=== PATIENT | male | born 1960 | race Caucasian/White ===

== ENCOUNTER 2018-04-16 11:08 | Observation (INO) | payer SELFPAY ==
--- NOTE | 2018-04-16 11:27 | ER Report ---
History and Physical Time Seen By MD: 11:27 Hx. of Stated Complaint: Pt. had heartburn last night, and it's not going away. Now has mid-seternal chest pressure. Also has tingling sensation in his fingers and toes. 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 Patient does complain of bilateral lower extremity soreness in his calves. Denies taking any medications aside from antihypertensive with a history of hypertension. Patient denies prior history of cardiac disease with a reportedly negative cardiac catheterization in 2007 or . Patient is afebrile, hemodynamically stable at time of evaluation. Patient reports having a cough which is worse than his regular smoking cough. REVIEW OF SYSTEMS: Constitutional: No fever, no chills. Eyes: No discharge. ENT: No sore throat. Cardiovascular: + mid sternal chest pain/ pressure, no palpitations. Respiratory: + cough, + shortness of breath. Gastrointestinal: + mid epigastric burning abdominal pain, + nausea/ vomiting and diarrhea Genitourinary: No hematuria. Musculoskeletal: No back pain. Skin: No rashes. Neurological: No headache, + near syncopal episodes. Allergies: Coded Allergies: No Known Drug Allergies (Unverified , 04/16/18) Constitutional Vital Sign - Last 24 Hours 04/16/18 04/16/18 04/16/18 04/16/18 11:13 11:15 11:18 11:23 Temp 98.1 Pulse 71 69 65 Resp 20 14 12 B/P (MAP) 134/81 134/81 (98) Pulse Ox 96 93 94 O2 Delivery Room Air 04/16/18 04/16/18 04/16/18 04/16/18 11:28 11:30 11:33 11:38 Pulse 71 59 59 Resp 14 20 11 B/P (MAP) 137/77 (97) Pulse Ox 94 93 94 04/16/18 04/16/18 04/16/1804/16/18 11:43 11:46 11:48 12:00 Pulse 68 74 Resp 12 18 B/P (MAP) 128/83 (98) 131/78 (95) Pulse Ox 94 91 04/16/18 04/16/18 04/16/18 04/16/18 12:03 12:08 12:08 12:13 Pulse 60 55 57 Resp 16 16 Pulse Ox 92 94 94 O2 Flow Rate 2.0 04/16/18 04/16/18 04/16/18 04/16/18 12:18 12:23 12:28 12:30 Pulse 54 51 49 Resp 17 15 14 B/P (MAP) 121/74 (90) Pulse Ox 92 92 92 04/16/18 04/16/18 04/16/18 04/16/18 12:33 12:38 12:43 12:48 Pulse 49 52 55 59 Resp 14 15 21 12 Pulse Ox 92 92 93 93 04/16/18 04/16/18 04/16/18 04/16/18 12:53 12:58 13:03 13:08 Pulse 53 57 65 60 Resp 0 25 16 9 Pulse Ox 94 94 92 04/16/18 04/16/18 13:13 13:28 Pulse 52 62 Resp 0 13 Pulse Ox 94 92 Physical Exam General Appearance: The patient is alert, has no immediate need for airway protection and no signs of toxicity. Moderate distress secondary to pain Eyes: Scleral icterus ENT, Mouth: Mucous membranes are moist. Respiratory: There are no retractions, lungs are clear to auscultation Cardiovascular: Regular rate and rhythm. Gastrointestinal: Abdomen is soft and + mid epigastric tenderness, no masses, bowel sounds normal. Neurological: No focal deficits Skin: Warm and dry, no rashes, mild jaundice Musculoskeletal: Neck is supple non tender. Extremities are nontender, nonswollen and have full range of motion. DIFFERENTIAL DIAGNOSIS: After history and physical exam differential diagnosis was considered for chest pain including but not limited to myocardial ischemia, pericarditis pulmonary embolus, chest wall pain, pleural inflammation and pulmonary infectious causes., abdominal pain including but not limited to a ppendicitis, cholecystitis, gastritis Medical Decision Making Data Points Result Diagram: 04/16/18 1120 04/16/18 1120 Laboratory Hematology Test 04/16/18 11:20 04/16/18 13:05 04/16/18 15:28 Red Blood Count 4.71 M/uL (4.00-5.60) Mean Corpuscular Volume 101.1 fL (80.0-96.0) Mean Corpuscular Hemoglobin 35.3 pg (26.0-33.0) Mean Corpuscular Hemoglobin Concent 35.0 g/dL (32.0-36.0) Red Cell Distribution Width 14.1 % (11.5-14.5) Mean Platelet Volume 9.4 fL (7.2-11.1) Neutrophils (%) (Auto) 68.7 % (39.4-72.5) Lymphocytes (%) (Auto) 19.1 % (17.6-49.6) Monocytes (%) (Auto) 8.4 % (4.1-12.4) Eosinophils (%) (Auto) 3.0 % (0.4-6.7) Basophils (%) (Auto) 0.8 % (0.3-1.4) Nucleated RBC Relative Count (auto) 0.1 /100WBC Neutrophils # (Auto) 2.6 K/uL (2.0-7.4) Lymphocytes # (Auto) 0.7 K/uL (1.3-3.6) Monocytes # (Auto) 0.3 K/uL (0.3-1.0) Eosinophils # (Auto) 0.1 K/uL (0.0-0.5) Basophils # (Auto) 0.0 K/uL (0.0-0.1) Nucleated RBC Absolute Count (auto) 0.00 K/uL Peripheral Blood Smear Yes Y/N Prothrombin Time 15.9 seconds (12.0-14.4) Prothromb Time International Ratio 1.26 Activated Partial Thromboplast Time 32 seconds (23-35) D-Dimer Quantitative (PE/DVT) 0.49 ug/ml (0-0.50) Sodium Level 139 mmol/L (137-145) Potassium Level 3.8 mmol/L (3.5-5.0) Chloride Level 111 mmol/L (98-107) Carbon Dioxide Level 20 mmol/L (22-30) Blood Urea Nitrogen 9 mg/dl (9-21) Creatinine 0.70 mg/dl (0.66-1.25) Glomerular Filtration Rate Calc > 60.0 Random Glucose 96 mg/dl (75-110) Calcium Level 7.9 mg/dl (8.4-10.2) Total Bilirubin 3.3 mg/dl (0.2-1.3) Aspartate Amino Transf (AST/SGOT) 98 U/L (0-35) Alanine Aminotransferase (ALT/SGPT) 102 U/L (0-56) Alkaline Phosphatase 99 U/L (0-126) Troponin I < 0.012 ng/ml B-Type Natriuretic Peptide 110 pg/ml (0-100) Total Protein 6.9 g/dl (6.3-8.2) Albumin 3.1 g/dl (3.5-5.0) Lipase 352 U/L (23-300) Urine Color Ashley Urine Clarity Clear Urine pH 5.0 pH (4.8-9.5) Urine Specific [place] 1.020 Urine Protein Negative mg/dL (NEGATIVE) Urine Glucose (UA) Negative mg/dL (NEGATIVE) Urine Ketones Negative mg/dL (NEGATIVE) Urine Blood Negative (NEGATIVE) Urine Nitrite Negative (NEGATIVE) Urine Bilirubin Negative (NEGATIVE) Urine Urobilinogen 4.0 mg/dL (0.2-1.9) Urine Leukocyte Esterase Negative (NEGATIVE) Urine RBC 1 /HPF (0-2/HPF) Urine WBC 2 /HPF (0-5/HPF) Urine Squamous Epithelial Cells Many /LPF (</=FEW) Urine Bacteria Moderate /HPF (NONE-FEW) Urine Mucus Few /HPF (NONE-FEW) Chemistry Test 04/16/18 11:20 04/16/18 13:05 04/16/18 15:28 White Blood Count 3.8 k/uL (4.5-11.0) Red Blood Count 4.71 M/uL (4.00-5.60) Hemoglobin 16.6 g/dL (14.0-18.0) Hematocrit 47.6 % (42.0-52.0) Mean Corpuscular Volume 101.1 fL (80.0-96.0) Mean Corpuscular Hemoglobin 35.3 pg (26.0-33.0) Mean Corpuscular Hemoglobin Concent 35.0 g/dL (32.0-36.0) Red Cell Distribution Width 14.1 % (11.5-14.5) Platelet Count 42 K/uL (150-450) Mean Platelet Volume 9.4 fL (7.2-11.1) Neutrophils (%) (Auto) 68.7 % (39.4-72.5) Lymphocytes (%) (Auto) 19.1 % (17.6-49.6) Monocytes (%) (Auto) 8.4 % (4.1-12.4) Eosinophils (%) (Auto) 3.0 % (0.4-6.7) Basophils (%) (Auto) 0.8 % (0.3-1.4) Nucleated RBC Relative Count (auto) 0.1 /100WBC Neutrophils # (Auto) 2.6 K/uL (2.0-7.4) Lymphocytes # (Auto) 0.7 K/uL (1.3-3.6) Monocytes # (Auto) 0.3 K/uL (0.3-1.0) Eosinophils # (Auto) 0.1 K/uL (0.0-0.5) Basophils # (Auto) 0.0 K/uL (0.0-0.1) Nucleated RBC Absolute Count (auto) 0.00 K/uL Peripheral Blood Smear Yes Y/N Prothrombin Time 15.9 seconds (12.0-14.4) Prothromb Time International Ratio 1.26 Activated Partial Thromboplast Time 32 seconds (23-35) D-Dimer Quantitative (PE/DVT) 0.49 ug/ml (0-0.50) Glomerular Filtration Rate Calc > 60.0 Calcium Level 7.9 mg/dl (8.4-10.2) Total Bilirubin 3.3 mg/dl (0.2-1.3) Aspartate Amino Transf (AST/SGOT) 98 U/L (0-35) Alanine Aminotransferase (ALT/SGPT) 102 U/L (0-56) Alkaline Phosphatase 99 U/L (0-126) Troponin I < 0.012 ng/ml B-Type Natriuretic Peptide 110 pg/ml (0-100) Total Protein 6.9 g/dl (6.3-8.2) Albumin 3.1 g/dl (3.5-5.0) Lipase 352 U/L (23-300) Urine Color Ashley Urine Clarity Clear Urine pH 5.0 pH (4.8-9.5) Urine Specific [place] 1.020 Urine Protein Negative mg/dL (NEGATIVE) Urine Glucose (UA) Negative mg/dL (NEGATIVE) Urine Ketones Negative mg/dL (NEGATIVE) Urine Blood Negative (NEGATIVE) Urine Nitrite Negative (NEGATIVE) Urine Bilirubin Negative (NEGATIVE) Urine Urobilinogen 4.0 mg/dL (0.2-1.9) Urine Leukocyte Esterase Negative (NEGATIVE) Urine RBC 1 /HPF (0-2/HPF) Urine WBC 2 /HPF (0-5/HPF) Urine Squamous Epithelial Cells Many /LPF (</=FEW) Urine Bacteria Moderate /HPF (NONE-FEW) Urine Mucus Few /HPF (NONE-FEW) Coagulation Test 04/16/18 11:20 Prothrombin Time 15.9 seconds Prothromb Time International Ratio 1.26 Activated Partial Thromboplast Time 32 seconds D-Dimer Quantitative (PE/DVT) 0.49 ug/ml Urinalysis Test 04/16/18 13:05 Urine Color Ashley Urine Clarity Clear Urine pH 5.0 pH (4.8-9.5) Urine Specific [place] 1.020 Urine Protein Negative mg/dL (NEGATIVE) Urine Glucose (UA) Negative mg/dL (NEGATIVE) Urine Ketones Negative mg/dL (NEGATIVE) Urine Blood Negative (NEGATIVE) Urine Nitrite Negative (NEGATIVE) Urine Bilirubin Negative (NEGATIVE) Urine Urobilinogen 4.0 mg/dL (0.2-1.9) Urine Leukocyte Esterase Negative (NEGATIVE) Urine RBC 1 /HPF (0-2/HPF) Urine WBC 2 /HPF (0-5/HPF) Urine Squamous Epithelial Cells Many /LPF (</=FEW) Urine Bacteria Moderate /HPF (NONE-FEW) Urine Mucus Few /HPF (NONE-FEW) EKG/Imaging EKG Interpretation 12 lead EKG: Normal sinus rhythm, rate 61, QTc 465, no ischemic changes or arrhythmias Rhythm: normal sinus rhythm [place]: normal QRS: normal ST segments: normal Imaging Location: [facility] Patient: Alon Galarza : 1960 Visit/Account:[id number] Date of Sev: 04/16/2018 Technique: CHEST PA AND LAT HISTORY: Chest Pain Comparison studies: None FINDINGS: No acute airspace consolidation. No pleural effusion. Diffusely increased interstitial lung markings are noted. The cardiomediastinal silhouette is unremarkable. IMPRESSION: 1. No acute cardiopulmonary process. 2. Chronic lung findings as described above. ED Course/Re-evaluation ED Course Patient is a 58-year-old male here with complaints of chest pain, chest pressure, burning midepigastric abdominal pain, nausea, vomiting, orange urine which has been ongoing for the past week or so. Patient reports that symptoms have been worsening since Monday prompting evaluation. 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 Patient does have mild j aundice on examination as well as midepigastric and right upper quadrant abdominal pain. Patient was also noted to have mild scleral icterus, mild jaundice on physical exam. Patient was found to have elevated total bilirubin, elevated LFTs, elevated lipase, decreased platelet count consistent with s ignificant alcohol use or liver disease with worsening synthetic function. Troponin and d-dimer were negative. CT imaging showed a cirrhotic nodular liver, scattered varices, and irregular mass in the lower lobe of the liver concerning for malignancy. I discussed the options of admission here or transfer for further workup and the patient opted for optimization and admission here so that he could get home for further workup later on. I discussed the patient with Dr. Roberto Clark who accepted the patient to his service. Decision to Disposition Date: Apr 16, 2018 Decision to Disposition Time: 15:48 Depart Departure Latest Vital Signs Vital Signs Date Time Temp Pulse Resp B/P (MAP) Pulse Ox O2 Delivery O2 Flow Rate FiO2 04/16/18 13:28 62 13 92 04/16/18 12:30 121/74 (90) 04/16/18 12:08 2.0 04/16/18 11:13 98.1 Room Air Impression: Primary Impression: Pancreatitis Additional Impressions: Cirrhosis Nausea & vomiting Condition: Condition Unchanged Disposition: Admitted from ER Problem Qualifiers GAMA APPLE DO Apr 16, 2018 11:27
[2018-04-16] MEDS ORDERED: NS(*) 0.9% 1000 ML BAG 1,000 ML IV ONE ×2 (11:32→13:00)
[2018-04-16] MEDS ORDERED: ASPIRIN 81 MG CHEW PO ONE (11:35)
[2018-04-16] MEDS ORDERED: GI COCKTAIL 60 ML BTL PO PRN (11:35)
[2018-04-16] MEDS ORDERED: LIDOCAINE 2% VISC SLN 15ML UDC PO ONE (11:40)
[2018-04-16] MEDS ORDERED: ATRO/SCOPOL/HYOSCY/PB 5 ML ELX PO ONE (11:40)
[2018-04-16] MEDS ORDERED: MAG HYD/AL HYD/SIMETH 30ML UDC PO ONE (11:40)
[2018-04-16] MEDS: NITROGLYCERIN 0.4 MG SUBL SL SCH ×2 (11:41→15:44)
[2018-04-16 12:03] LABS: PLATELET COUNT, AUTOMATED 42 K/uL (150-450)
--- NOTE | 2018-04-16 12:17 | RADIOLOGY IMAGING REPORT ---
FACILITY: [facility] PATIENT NAME: Alon Galarza : 1960 MR: [id number] V: [id number] EXAM DATE: ORDERING PHYSICIAN: GAMA APPLE TECHNOLOGIST: Location: [facility] Patient: Alon Galarza : 1960 Visit/Account:[id number] Date of Sevice: 04/16/2018 Technique: CHEST PA AND LAT HISTORY: Chest Pain Comparison studies: None FINDINGS: No acute airspace consolidation. No pleural effusion. Diffusely increased interstitial rahel ng markings are noted. The cardiomediastinal silhouette is unremarkable. IMPRESSION: 1. No acute cardiopulmonary process. 2. Chronic lung findings as described above. Report Dictated By: Vince Amaya DO at 04/16/2018 12:11 PM Report E-Signed By: Vince Amaya DO at 04/16/2018 12:12 PM [id number]
--- NOTE | 2018-04-16 12:18 | EKG ---
FACILITY: [facility] PATIENT NAME: KELTON BUNN : [id number] MR: [id number] V: [id number] EXAM DATE: ORDERING PHYSICIAN: GAMA APPLE TECHNOLOGIST: NHAN Test Reason : CHEST PAIN Blood Pressure : / mmHG Vent. Rate : 061 BPM Atrial Rate : 061 BPM P-R Int : 178 ms QRS Dur : 088 ms QT Int : 462 ms P-R-T Axes : 055 021 039 degrees QTc Int : 465 ms Sinus rhythm Possible left atrial enlargement No acute appearing findings No previous ECGs available Confirmed by MT ROMERO ([id number]) on 04/16/2018 1:45:03 PM Referred By: Confirmed By:MT ROMERO
[2018-04-16 12:21] LABS: INR 1.26
[2018-04-16] MEDS ORDERED: IOPAMIDOL 76% 75 ML INFUS BTL 75 ML ONE (13:03)
--- NOTE | 2018-04-16 14:29 | RADIOLOGY IMAGING REPORT ---
FACILITY: [facility] PATIENT NAME: Alon Galarza : 1960 MR: [id number] V: [id number] EXAM DATE: ORDERING PHYSICIAN: GAMA APPLE TECHNOLOGIST: Location: [facility] Patient: Alon Galarza : 1960 Visit/Account:[id number] Date of Sevice: 04/16/2018 ABDOMEN/PELVIS WITH CONTRAST HISTORY: pancreatitis, abd pain TECHNIQUE: Following administration of IV contrast contiguous axial images acquired through the abdom en/pelvis. Coronal and sagittal reformatting also performed.Dose Lowering Technique One of the following dose optimization techniques was utilized in the performance of this exam: Autom ated exposure control; adjustment of the mA and/or kV according to the patient's size; or use of an i terative reconstruction technique. Specific details can be referenced in the facility's radiology C T exam operational policy. CONTRAST: 75 mL [id number] COMPARISON: None. FINDINGS: Visualized lung bases: There are reticular changes seen in the periphery of the lower lung [place] wh ich may be chronic Hepatobiliary: There is a nodular contour throughout the liver with hypertrophy of the left lobe. Fi ndings are consistent with a cirrhotic appearance. In the anteromedial inferior right lobe there is a 2.3 x 1.3 cm irregular hypoattenuating mass. Several other tiny subcentimeter hypodensities within the liver which are too small to characterize. There are postsurgical changes from a cholecystectom y Spleen: Spleen is enlarged measuring 18.7 cm in length Adrenals: Negative. Pancreas: There are infiltrative changes seen in the peripancreatic fat consistent with the clinical history of pancreatitis. No evidence of a pseudocyst. The pancreatic duct does not appear dilated Kidneys ureters or bladder: There is a 4.5 cm anterior left renal cyst Genitalia: Negative. GI: Negative. Vessels/spaces/nodes: There are gastric and paraesophageal varices in addition to numerous additiona l collateral vessels within the mesentery .. There are mild vascular calcifications present through out the abdomen and pelvis. There are multiple mildly prominent periportal lymph nodes. A inventory representative lymph node measures 1.6 x 1.4 cm. There are small shotty retroperitoneal lymph nodes as well Bones/soft tissues: There is a small umbilical hernia containing fat.. There is a right inguinal he rnia containing fat. There is a moderate compression fracture of L4 Additional findings: None pertinent. IMPRESSION: There is a cirrhotic appearance to the liver with numerous gastric paraesophageal and mesenteric vari ramon. There is a 2.3 x 1.3 cm irregular hypoattenuating mass inferior aspect right lobe the liver. P rimary hepatocellular carcinoma cannot be excluded although the differential diagnosis would include other solid hepatic lesions both benign and malignant. There are multiple mildly prominent periporta l lymph nodes in addition to shotty retroperitoneal lymph nodes Splenomegaly There are infiltrative changes in the peripancreatic fat consistent with clinical history of pancreat itis. There is no evidence of a pseudocyst or pancreatic ductal dilatation. Moderate compression fracture of L4 Small umbilical hernia containing fat and right inguinal hernia containing fat Report Dictated By: Dione Chavez MD at 04/16/2018 2:10 PM Report E-Signed By: Dione Chavez MD at 04/16/2018 2:26 PM [id number]
[2018-04-16] MEDS ORDERED: traMADol 50 MG TAB PO ONE (14:30)
[2018-04-16] MEDS ORDERED: ONDANSETRON 4 MG/2 ML VIAL IVP ONE (14:30)
[2018-04-16] MEDS ORDERED: oxyCODONE HCL 5 MG CAP PO ONE (14:30)
[2018-04-16] MEDS ORDERED: fentaNYL CITR 100 MCG/2 ML AMP IVP ONE (14:40)
[2018-04-16 16:21] VITALS: BP 151/80
[2018-04-16] MEDS ORDERED: LISI20TA29 PO (16:29)
[2018-04-16] MEDS ORDERED: NS(*) 0.9% 1000 ML BAG 1,000 ML IV PRN (17:24)
[2018-04-16] MEDS ORDERED: PROMETHAZINE 25 MG/ML 1 ML AMP IVP PRN (17:25)
[2018-04-16] MEDS ORDERED: HYDROmorphone PCA 6 MG/30 ML IV PRN (17:25)
[2018-04-16] MEDS ORDERED: INFLUENZA VIRUS VAC 0.5ML SYR IM ONLY ONE (17:25)
--- NOTE | 2018-04-16 17:39 | History & Physical ---
History of Present Illness Chief Complaint Abdominal pain, nausea History of Present Illness 58yo male with PMHx significant for HTN and "maybe hepatitis C". He reports frequent epigastric pain, waterbrash, pyrosis. His symptoms increased signifi cantly yesterday with worsening epigastric pain, nausea with emesis, some diarrhea. No obvious fevers or chills. No urinary symptoms. He does drink alcohol intermittently. 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 He was evaluated in the ER and found to have mild elevation of his lipase, evidence of fairly advanced cirrhosis of the liver, as well as liver mass. He was recommended for admission. History Problems: (1) HTN (hypertension) (2) History of cholecystectomy (3) Hepatitis C Comment: Possible (4) GERD (gastroesophageal reflux disease) Home Meds Reported Medications Lisinopril (LISINOPRIL) 20 Mg Tablet, 20 MG PO QDAY, TAB 04/16/18 Allergies: Coded Allergies: No Known Drug Allergies (Unverified , 04/16/18) Patient History: Lung cancer FATHER Myocardial infarction MOTHER Other Social/Family Hx Lives in [place]. Works as driver manager. Hx Smoking: Yes Smoking Status: Current: Every Day Smoker Exposure to Second Hand Smoke?: No Caffeine Intake: Coffee, Tea, Soda Caffeine/Cups Per Day: 4 Hx Alcohol Use: Yes (varies ) Alcohol Used: Beer, Liquor Review of Systems Constitutional: No Fever, No Chills, No Night Sweats Neurological: No Syncope, No Confusion, No Weakness Eyes: No Vision Change ENT: No Hearing Loss Cardiovascular: No Chest Pain, No Palpitations Respiratory: No Shortness of Breath, No Cough Gastrointestinal: Nausea, Vomiting, Diarrhea; No Hematemesis, No Hematochezia, No Melena; Abdominal Pain Genitourinary: No Dysuria, No Hematuria, No Urinary Incontinence Musculoskeletal: Pain Exam Vital Signs Vital Signs Date Time Temp Pulse Resp B/P (MAP) Pulse Ox O2 Delivery O2 Flow Rate FiO2 04/16/18 16:35 92 04/16/18 16:35 Room Air 04/16/18 16:21 97.5 67 18 151/80 (103) 04/16/18 12:08 2.0 General Appearance: Alert, Awake Neuro: No Gross deficits Eyes: PERRLA (mild scleral icterus) ENT: Oropharynx Clear Neck: No Masses Cardiovascular: Regular Rate and Rhythm Respiratory: Clear to Auscultation Chest: No Tenderness GI: Other (slightly distended/soft/BS present/tenderness reported diffusely with palpation) : No CVA Tenderness Lymph: No Adenopathy Extremities: Warm, Perfused Integumentary: Other (hard nodular dark colored lesion over right medial malleolar area) Psych: Alert & Oriented X3 Medical Decision Making Data Points Result Diagram: 04/16/18 1120 04/16/18 1120 Item Value Date Time Urine Mucus Few /HPF 04/16/18 1305 Urine Bacteria Moderate /HPF H 04/16/18 1305 Urine Squamous Epithelial Cells Many /LPF H 04/16/18 1305 Urine WBC 2 /HPF 04/16/18 1305 Urine RBC 1 /HPF 04/16/18 1305 Urine Leukocyte Esterase Negative 04/16/18 1305 Urine Urobilinogen 4.0 mg/dL H 04/16/18 1305 Urine Bilirubin Negative 04/16/18 1305 Urine Nitrite Negative 04/16/18 1305 Urine Blood Negative 04/16/18 1305 Urine Ketones Negative mg/dL 04/16/18 1305 Urine Glucose (UA) Negative mg/dL 04/16/18 1305 Urine Protein Negative mg/dL 04/16/18 1305 Urine Specific [place] 1.020 04/16/18 1305 Urine pH 5.0 pH 04/16/18 1305 Urine Clarity Clear 04/16/18 1305 Urine Color Ashley 04/16/18 1305 Lipase 352 U/L H 04/16/18 1120 Ammonia 38 UMOL/L H 04/16/18 1528 B-Type Natriuretic Peptide 110 pg/ml H 04/16/18 1120 Albumin 3.1 g/dl L 04/16/18 1120 Total Protein 6.9 g/dl 04/16/18 1120 Troponin I < 0.012 ng/ml 04/16/18 1120 Alkaline Phosphatase 99 U/L 04/16/18 1120 Alanine Aminotransferase (ALT/SGPT) 102 U/L H 04/16/18 1120 Aspartate Amino Transf (AST/SGOT) 98 U/L H 04/16/18 1120 Total Bilirubin 3.3 mg/dl H 04/16/18 1120 Calcium Level 7.9 mg/dl L 04/16/18 1120 Activated Partial Thromboplast Time 32 seconds 04/16/18 112 Prothromb Time International Ratio 1.26 04/16/18 112 Prothrombin Time 15.9 seconds H 04/16/18 112 D-Dimer Quantitative (PE/DVT) 0.49 ug/ml 04/16/18 1120 EKG / Imaging EKG Interpretation PATIENT NAME: ALON BUNN : [id number] MR: [id number] V: [id number] EXAM DATE: ORDERING PHYSICIAN: GAMA APPLE TECHNOLOGIST: NHAN Test Reason : CHEST PAIN Blood Pressure : / mmHG Vent. Rate : 061 BPM Atrial Rate : 061 BPM P-R Int : 178 ms QRS Dur : 088 ms QT Int : 462 ms P-R-T Axes : 055 021 039 degrees QTc Int : 465 ms Sinus rhythm Possible left atrial enlargement No acute appearing findings No previous ECGs available Confirmed by MT ROMERO ([id number]) on 04/16/2018 1:45:03 PM Referred By: Confirmed By:MT ROMERO Imaging PATIENT NAME: Alon Bunn : 1960 MR: [id number] V: [id number] EXAM DATE: [id number] ORDERING PHYSICIAN: GAMA APPLE TECHNOLOGIST: Location: [facility] - [place] Patient: Alon Bunn : 1960 Visit/Account:[id number] Date of Sevice: 04/16/2018 ABDOMEN/PELVIS WITH CONTRAST HISTORY: pancreatitis, abd pain TECHNIQUE: Following administration of IV contrast contiguous axial images acquired through the abdomen/pelvis. Coronal and sagittal reformatting also performed.Dose Lowering Technique One of the following dose optimization techniques was utilized in the performance of this exam: Automated exposure control; adjustment of the mA and/or kV according to the patient's size; or use of an iterative reconstruction technique. Specific details can be referenced in the facility's radiology CT exam operational policy. CONTRAST: 75 mL Isovue-370 COMPARISON: None. FINDINGS: Visualized lung bases: There are reticular changes seen in the periphery of the lower lung carrillo which may be chronic Hepatobiliary: There is a nodular contour throughout the liver with hypertrophy of the left lobe. Findings are consistent with a cirrhotic appearance. In the anteromedial inferior right lobe there is a 2.3 x 1.3 cm irregular hypoattenuating mass. Several other tiny subcentimeter hypodensities within the liver which are too small to characterize. There are postsurgical changes from a cholecystectomy Spleen: Spleen is enlarged measuring 18.7 cm in length Adrenals: Negative. Pancreas: There are infiltrative changes seen in the peripancreatic fat consistent with the clinical history of pancreatitis. No evidence of a pseudocyst. The pancreatic duct does not appear dilated Kidneys ureters or bladder: There is a 4.5 cm anterior left renal cyst Genitalia: Negative. GI: Negative. Vessels/spaces/nodes: There are gastric and paraesophageal varices in addition to numerous additional collateral vessels within the mesentery .. There are mild vascular calcifications present throughout the abdomen and pelvis. There are multiple mildly prominent periportal lymph nodes. A enrollment representative lymph node measures 1.6 x 1.4 cm. There are small shotty retroperitoneal lymph nodes as well Bones/soft tissues: There is a small umbilical hernia containing fat.. There is a right inguinal hernia containing fat. There is a moderate compression fracture of L4 Additional findings: None pertinent. IMPRESSION: There is a cirrhotic appearance to the liver with numerous gastric paraesophageal and mesenteric varices. There is a 2.3 x 1.3 cm irregular hypoattenuating mass inferior aspect right lobe the liver. Primary hepatocellular carcinoma cannot be excluded although the differential diagnosis would include other solid hepatic lesions both benign and malignant. There are multiple mildly prominent periportal lymph nodes in addition to shotty retroperitoneal lymph nodes Splenomegaly There are infiltrative changes in the peripancreatic fat consistent with clinical history of pancreatitis. There is no evidence of a pseudocyst or pancreatic ductal dilatation. Moderate compression fracture of L4 Small umbilical hernia containing fat and right inguinal hernia containing fat Report Dictated By: Dione Chavez MD at 04/16/2018 2:10 PM Report E-Signed By: Dione Chavez MD at 04/16/2018 2:26 PM WSN:[facility] PATIENT NAME: Alon Bunn : 1960 MR: [id number] V: [id number] EXAM DATE: ORDERING PHYSICIAN: GAMA APPLE TECHNOLOGIST: Location: [facility] - [place] Patient: Alon Bunn : 1960 Visit/Account:[id number] Date of Sevalexsandra: 04/16/2018 Technique: CHEST PA AND LAT HISTORY: Chest Pain Comparison studies: None FINDINGS: No acute airspace consolidation. No pleural effusion. Diffusely increased interstitial lung markings are noted. The cardiomediastinal silhouette is unremarkable. IMPRESSION: 1. No acute cardiopulmonary process. 2. Chronic lung findings as described above. Report Dictated By: Vince Amaya DO at 04/16/2018 12:11 PM Report E-Signed By: Vince Amaya DO at 04/16/2018 12:12 PM WSN:[facility] Assessment and Plan Problems: (1) Abdominal pain Status: Acute Assessment & Plan: This may be multifactorial including possible acute pancreatitis based on lab and CT scan findings. He also appears to have fairly advanced liver disease - probably chronic hepatitis C and alcohol related. Additionally, he has a suspicious liver mass. Will admit for IV fluids, analgesics, antiemetics. Will place on clear liquids. Watch symptoms and labs closely. He initially has said he would like to do any further evaluation (ie biopsies, etc) back home in [place]. (2) Nausea & vomiting Status: Acute Assessment & Plan: Most likely related to acute pancreatitis. Will control with antiemetics as needed. (3) HTN (hypertension) Assessment & Plan: Hold his lisinopril for now. Monitor BPs. Venous Thromboembolism Antithrombotics Is Pt On Any Antithrombotics?: Yes Exam Sepsis Risk: No Definite Risk MT ROMERO MD Apr 16, 2018 17:39
[2018-04-16 20:36] VITALS: BP 137/84
[2018-04-16] MEDS: PANTOPRAZOLE SOD 40 MG IV VIAL IVP SCH (21:37)
[2018-04-17 02:23] VITALS: BP 142/81
[2018-04-17 06:49] LABS: PLATELET COUNT, AUTOMATED 37 K/uL (150-450)
[2018-04-17 08:14] VITALS: BP 132/77
[2018-04-17] MEDS: PANTOPRAZOLE SOD 40 MG IV VIAL IVP SCH (08:21)
[2018-04-17] MEDS ORDERED: ENOXAPARIN 40 MG/0.4ML SYR SC SCH (09:00)
[2018-04-17] MEDS ORDERED: traMADol 50 MG TAB PO PRN (10:05)
[2018-04-17 11:55] VITALS: BP 123/69
--- NOTE | 2018-04-17 12:02 | Hospitalist Progress Note ---
Subjective Progress Notes Subjective He is tolerating clears and wants to advance his diet. He is still having his chronic epigastric pain. Nausea has resolved. Physical Exam Vital Signs Date Time Temp Pulse Resp B/P (MAP) Pulse Ox O2 Delivery O2 Flow Rate FiO2 04/17/18 11:45 20 92 04/17/18 08:39 Room Air 04/17/18 08:35 4.0 04/17/18 08:14 97.9 64 132/77 (95) Intake and Output 04/17/18 07:00 Intake Total 2700 ml Balance 2700 ml Intake Oral 700 ml IV Total 2000 ml # Voids 1 General Appearance: Alert, Awake, No Acute Distress Neuro: No Gross deficits, Other (Orientated to date, location, events that led to admission) GI: Soft and Non-Tender Result Diagram: 04/17/1860904/17/18609 Assessment and Plan Problems: (1) Abdominal pain Status: Acute Assessment & Plan: This may be multifactorial including possible acute pancreatitis based on lab and CT scan findings. He also appears to have fairly advanced liver disease - probably chronic hepatitis C and alcohol related. Additionally, he has a suspicious liver mass. Lipase is normal today and he is wanting to eat. Will advance to a low fat diet. He has said he would like to do any further evaluation (ie biopsies, etc) back home in [place]. (2) Cirrhosis Status: Acute Assessment & Plan: See above. INR, T bilirubin, and ammonia a bit elevated. His mentation is clear. Will follow labs. (3) Nausea & vomiting Status: Resolved Assessment & Plan: Most likely related to acute pancreatitis. Improved. (4) HTN (hypertension) Assessment & Plan: Hold his lisinopril for now. Monitor BPs. Exam Sepsis Risk: No Definite Risk PÉREZ LANE MD Apr 17, 2018 12:01
[2018-04-17] MEDS ORDERED: hydrOXYzine 25 MG TAB PO ONE (13:30)
[2018-04-17] MEDS: oxyCODONE HCL 5 MG CAP PO PRN ×2 (14:21→20:30)
--- NOTE | 2018-04-17 15:07 | Medical Nutrition Therapy ---
Nutrition Anthropometrics Weight (Pounds): 280 Weight (Calculated Kilograms): 127.006 Amarjit Nutrition Score: Adequate Amarjit Nutrition Risk Score: 22 Dietary Referral Nutrition Risk Factors: Nutrition Risk Comment: Nutritional Diagnosis Nutritional Risk Acuity 2: Liver Cirrhosis Past Medical History: cirrhosis, Nutritional Acuity: 2-Moderate Energy Requirement: 2540 (20gm/kg) Protein Requirement: 127 (1gm/kg) Fluid Requirement: 2540 (20ml/kg) Diet Type: Low Fat Nutrition Intervention: Cont diet as ordered, Encourage intake Nutrition Monitoring & Eval Nutrition Goals: Eat 75-100% Meal RD Patient Assessment Time: [address] Assessment Type: RD Assessment Patient Nutrition Acuity: 2-Moderate Follow Up Date: Apr 21, 2018 Nutritional Comment: 04/17 Pt admitted for cirrhosis. Diet just advanced to low fat. No intake reported at this time. Alb 2.8 Pt reporting N/V. Will cont to monitor. CHANO SKAGGS Apr 17, 2018 15:07
[2018-04-17 15:10] VITALS: BP 139/78
[2018-04-17] MEDS ORDERED: diphenhydrAMINE 25 MG CAP PO PRN (17:35)
[2018-04-17 18:08] VITALS: BP 138/77
[2018-04-17 22:11] VITALS: BP 127/71
[2018-04-18] VITALS (8 sets, daily range): BP systolic 118–152; BP diastolic 66–82
[2018-04-18 05:55] LABS: INR 1.34
[2018-04-18 07:11] LABS: PLATELET COUNT, AUTOMATED 31 K/uL (150-450)
[2018-04-18] MEDS: PANTOPRAZOLE SOD 40 MG TABEC PO SCH (09:14)
[2018-04-18] MEDS: LACTULOSE 10 GM/15 ML UDCUP PO SCH (09:15)
[2018-04-18] MEDS: SUCRALFATE 1 GM TAB PO SCH ×3 (10:51→21:03)
--- NOTE | 2018-04-18 11:50 | Hospitalist Progress Note ---
Subjective Progress Notes Subjective This patient was admitted for abdominal pain. He had no acute events overnight. Patient Complains of: Cardiovascular: No: Chest Pain Respiratory: No: Shortness of Breath Physical Exam Vital Signs Date Time Temp Pulse Resp B/P (MAP) Pulse Ox O2 Delivery O2 Flow Rate FiO2 04/18/18 11:23 99.1 04/18/18 10:49 54 16 127/75 (92) 88 Room Air 04/18/18 07:32 2.0 Intake and Output0 04/18/18 07:00 Intake Total 1864 ml Balance 1864 ml Intake Oral 560 ml IV Total 1304 ml # Voids 6 Cardiovascular: Regular Rate and Rhythm Respiratory: Clear to Auscultation GI: Soft and Non-Tender Result Diagram: 04/18/1853704/18/18537 Item Value Date Time Total Bilirubin 2.9 mg/dl H 04/18/18537 Aspartate Amino Transf (AST/SGOT) 90 U/L H 04/18/18537 Alanine Aminotransferase (ALT/SGPT) 95 U/L H 04/18/18537 Ammonia 58 UMOL/L H 04/18/18537 Lipase 332 U/L H 04/18/18537 Assessment and Plan Problems: (1) Abdominal pain Status: Acute Assessment & Plan: This may be multifactorial including possible acute pancreatitis based on lab and CT scan findings. He also appears to have fairly advanced liver disease - probably chronic hepatitis C and alcohol related. Additionally, he has a suspicious liver mass. Lipase is normal today and he is wanting to eat. He is advancing his diet. He has said he would like to do any further evaluation (ie biopsies, etc) back home in [place]. (2) Cirrhosis Status: Acute Assessment & Plan: His CT scan did show findings consistent with cirrhosis. He also has an elevated bilirubin and ammonia. He does not have any mental status changes at the moment, but is at high risk for this given the elevated ammonia. He has been told that he should not drive in his current condition. Lactulose has been added to try to bring down his ammonia level. (3) Nausea & vomiting Status: Resolved Assessment & Plan: Most likely related to acute pancreatitis. Improved. (4) HTN (hypertension) Assessment & Plan: Hold his lisinopril for now. Monitor BPs. (5) Liver mass Assessment & Plan: This was found on his CT scan and could represent maligna ncy. He wishes to have this further evaluated at his home in [place]. Exam Sepsis Risk: No Definite Risk GRACIELA MATHEW DO Apr 18, 2018 11:50
--- NOTE | 2018-04-18 12:18 | RADIOLOGY IMAGING REPORT ---
FACILITY: [facility] PATIENT NAME: Alon Galarza : 1960 MR: [id number] V: [id number] EXAM DATE: ORDERING PHYSICIAN: GRACIELA MATHEW TECHNOLOGIST: Location: [facility] [place] Patient: Alon Galarza : 1960 Visit/Account:[id number] Date of Sevice: 04/18/2018 Exam type: CHEST SINGLE AP History: hypoxia; low grade temp Comparison: April 16, 2018. Findings: Diffuse interstitial prominence is again seen throughout the lungs similar to the prior study. Centr al peribronchial thickening also noted unchanged. Linear scarring in the lung bases consistent with scarring versus atelectasis There is no evidence of pleural effusions. The cardiac silhouette is nor mal in size. IMPRESSION: 1. Diffuse interstitial prominence throughout the lungs and central peribronchial thickening appears unchanged when compared the prior study. Differential diagnosis includes chronic changes or an acut e infectious/inflammatory process Linear stranding the lung bases consistent with scarring versus atelectasis Report Dictated By: Dione Chavez MD at 04/18/2018 12:13 PM Report E-Signed By: Dione Chavez MD at 04/18/2018 12:14 PM WSN:[facility]
[2018-04-18] MEDS ORDERED: NICOTINE INH SYSTEM 10 MG/INH INH PRN (14:50)
[2018-04-19 05:41] VITALS: BP 142/79
[2018-04-19] MEDS: SUCRALFATE 1 GM TAB PO SCH (05:45)
[2018-04-19 06:51] LABS: PLATELET COUNT, AUTOMATED 33 K/uL (150-450)
[2018-04-19 08:23] VITALS: BP 121/71
[2018-04-19] MEDS: PANTOPRAZOLE SOD 40 MG TABEC PO SCH (08:24)
[2018-04-19] MEDS: LACTULOSE 10 GM/15 ML UDCUP PO SCH (08:24)
[2018-04-19] MEDS ORDERED: LACT10SO62 PO (12:08)
--- NOTE | 2018-04-19 12:19 | Hospitalist Depart ---
Discharge Summary Reason for Hosp/Final Diag: (1) Abdominal pain Status: Acute Hospital Course & Plan: This may be multifactorial including possible acute pancreatitis based on lab and CT scan findings. He also appears to have fairly advanced liver disease - probably chronic hepatitis C and alcohol related. Additionally, he has a suspicious liver mass. Lipase has been normal to mildly elevated. He his tolerating oral intake. His abdominal pain is better, but still present. He reports no improvement with PPI use or Tramadol/oxycodone. He has said he would like to do any further evaluation (ie biopsies, etc) back home in [place]. (2) Cirrhosis Status: Acute Hospital Course & Plan: His CT scan did show findings consistent with cirrhosis. He also has an elevated bilirubin and ammonia. He does not have any mental status changes at the moment, but is at high risk for this given the elevated ammonia. He has been told that he should not drive in his current condition. Lactulose has been added to try to bring down his ammonia level. (3) Nausea & vomiting Status: Resolved Hospital Course & Plan: Most likely related to acute pancreatitis. Improved. (4) HTN (hypertension) Hospital Course & Plan: Resume chronic lisinopril (5) Liver mass Hospital Course & Plan: This was found on his CT scan and could represent malignancy. He wishes to have this further evaluated at his home in [place]. Departure Weight (Pounds): 280 Result Diagram: 04/19/1853904/19/18 0540 Item Value Date Time White Blood Count 3.8 k/uL L 04/16/18 1120 White Blood Count 2.6 k/uL L 04/17/18 0610 White Blood Count 2.6 k/uL L 04/18/18 0538 White Blood Count 2.5 k/uL L 04/19/18 0540 Platelet Count 42 K/uL *L 04/16/18 1120 Platelet Count 37 K/uL *L 04/17/18 0610 Platelet Count 31 K/uL *L 04/18/18 0538 Platelet Count 33 K/uL *L 04/19/18 0540 Neutrophils (%) (Auto) 68.7 % 04/16/18 1120 Neutrophils (%) (Auto) 57.4 % 04/17/18 0610 Neutrophils (%) (Auto) 59.9 % 04/18/18 0538 Neutrophils (%) (Auto) 52.1 % 04/19/18 0540 Lymphocytes (%) (Auto) 29.6 % 04/19/18 0540 Lymphocytes (%) (Auto) 22.0 % 04/18/18 0538 Lymphocytes (%) (Auto) 27.7 % 04/17/18 0610 Lymphocytes (%) (Auto) 19.1 % 04/16/18 1120 Prothromb Time International Ratio 1.26 04/16/18 1120 Prothromb Time International Ratio 1.34 04/18/18 0538 D-Dimer Quantitative (PE/DVT) 0.49 ug/ml 04/16/18 1120 Lipase 305 U/L H 04/19/18 0540 Lipase 332 U/L H 04/18/18 0538 Lipase 257 U/L 04/17/18 0610 Total Protein 6.5 g/dl 04/17/18 0610 Total Protein 6.0 g/dl L 04/18/18 0538 Total Protein 5.8 g/dl L 04/19/18 0540 Ammonia 37 UMOL/L H 04/19/18 0540 Ammonia 58 UMOL/L H 04/18/18 0538 Ammonia 38 UMOL/L H 04/16/18 1528 Troponin I < 0.012 ng/ml 04/16/18 1120 B-Type Natriuretic Peptide 110 pg/ml H 04/16/18 1120 Lipase 352 U/L H 04/16/18 1120 Calcium Level 7.9 mg/dl L 04/16/18 1120 Total Bilirubin 3.3 mg/dl H 04/16/18 1120 Aspartate Amino Transf (AST/SGOT) 98 U/L H 04/16/18 1120 Alanine Aminotransferase (ALT/SGPT) 102 U/L H 04/16/18 1120 Sodium Level 139 mmol/L 04/16/18 1120 Potassium Level 3.8 mmol/L 04/16/18 1120 Chloride Level 111 mmol/L H 04/16/18 1120 Carbon Dioxide Level 20 mmol/L L 04/16/18 1120 Blood Urea Nitrogen 9 mg/dl 04/16/18 1120 Creatinine 0.70 mg/dl 04/16/18 1120 Random Glucose 96 mg/dl 04/16/18 1120 Carbon Dioxide Level 20 mmol/L L 04/17/18 0610 Carbon Dioxide Level 24 mmol/L 04/18/18 0538 Carbon Dioxide Level 25 mmol/L 04/19/18 0540 Blood Urea Nitrogen 8 mg/dl L 04/19/18 0540 Blood Urea Nitrogen 9 mg/dl 04/18/18 0538 Blood Urea Nitrogen 9 mg/dl 04/17/18 0610 Creatinine 0.70 mg/dl 04/17/18 0610 Creatinine 0.70 mg/dl 04/18/18 0538 Creatinine 0.70 mg/dl 04/19/18 0540 Calcium Level 7.4 mg/dl L 04/17/18 0610 Total Bilirubin 4.1 mg/dl H 04/17/18 0610 Aspartate Amino Transf (AST/SGOT) 83 U/L H 04/17/18 0610 Alanine Aminotransferase (ALT/SGPT) 93 U/L H 04/17/18 0610 Alanine Aminotransferase (ALT/SGPT) 95 U/L H 04/18/18 0538 Aspartate Amino Transf (AST/SGOT) 90 U/L H 04/18/18 0538 Total Bilirubin 2.9 mg/dl H 04/18/18 0538 Calcium Level 7.5 mg/dl L 04/18/18 0538 Calcium Level 7.8 mg/dl L 04/19/18 0540 Total Bilirubin 2.5 mg/dl H 04/19/18 0540 Aspartate Amino Transf (AST/SGOT) 89 U/L H 04/19/18 0540 Alanine Aminotransferase (ALT/SGPT) 92 U/L H 04/19/18 0540 Urine Urobilinogen 4.0 mg/dL H 04/16/18 1305 Urine Leukocyte Esterase Negative 04/16/18 1305 Urine RBC 1 /HPF 04/16/18 1305 Urine WBC 2 /HPF 04/16/18 1305 Urine Squamous Epithelial Cells Many /LPF H 04/16/18 1305 Urine Bacteria Moderate /HPF H 04/16/18 1305 Urine Mucus Few /HPF 04/16/18 1305 Mean Corpuscular Volume 101.1 fL H 04/16/18 1120 Mean Corpuscular Volume 102.5 fL H 04/17/18 0610 Mean Corpuscular Volume 103.2 fL H 04/18/18 0538 Mean Corpuscular Volume 101.3 fL H 04/19/18 0540 Hemoglobin 16.6 g/dL 04/16/18 1120 Hemoglobin 15.6 g/dL 04/17/18 0610 Hemoglobin 15.2 g/dL 04/18/18 0538 Hemoglobin 15.2 g/dL 04/19/18 0540 Imaging 04/18/18 CXR - 1. Diffuse interstitial prominence throughout the lungs and central peribronchial thickening appears unchanged when compared the prior study. Differential diagnosis includes chronic changes or an acute infectious/inflammatory process Linear stranding the lung bases consistent with scarring versus atelectasis 04/16/18 Abd/Pelvis CT - There is a cirrhotic appearance to the liver with numerous gastric paraesophageal and mesenteric varices. There is a 2.3 x 1.3 cm irregular hypoattenuating mass inferior aspect right lobe the liver. Primary hepatocellular carcinoma cannot be excluded although the differential diagnosis would include other solid hepatic lesions both benign and malignant. There are multiple mildly prominent periportal lymph nodes in addition to shotty retroperitoneal lymph nodes Splenomegaly There are infiltrative changes in the peripancreatic fat consistent with clinical history of pancreatitis. There is no evidence of a pseudocyst or panc reatic ductal dilatation. Moderate compression fracture of L4 Small umbilical hernia containing fat and right inguinal hernia containing fat 04/16/18 CXR - 1. No acute cardiopulmonary process. 2. Chronic lung findings as described above. EKG Vent. Rate : 061 BPM Atrial Rate : 061 BPM P-R Int : 178 ms QRS Dur : 088 ms QT Int : 462 ms P-R-T Axes : 055 021 039 degrees QTc Int : 465 ms Sinus rhythm Possible left atrial enlargement No acute appearing findings No previous ECGs available Confirmed by MT ROMERO ([id number]) on 04/16/2018 1:45:03 PM Condition: Improved Discharge: Home Discharge Instructions Home Meds Active Scripts Omeprazole (OMEPRAZOLE) 20 Mg Tablet.dr, 20 MG PO QDAY for 30 Days, TAB Prov:PÉREZ LANE MD 04/19/18 Lactulose (LACTULOSE) 10 Gm/15 Ml Solution, 20 GM PO BID, #1 BOT Prov:PÉREZ LANE MD 04/19/18 Reported Medications Lisinopril (LISINOPRIL) 20 Mg Tablet, 20 MG PO QDAY, TAB 04/16/18 Diet: Low Fat Activity: As Tolerated Venous Thromboembolism Antithrombotics Is Pt On Any Antithrombotics?: Yes PÉREZ LANE MD Apr 19, 2018 12:19
[2018-04-19] MEDS ORDERED: OMEP-137 PO (12:21)
== END 2018-04-19 12:17 | disposition home or self-care (01) ==
LOC: ER 11:36 → MED 15:40 → INTOOBSV 15:40
PROVIDERS: ADMIT Internal Medicine; ATTEND Internal Medicine
DX: K85.90 Acute pancreatitis without necrosis or infection, unspecified (principal); K74.60 Unspecified cirrhosis of liver; R11.2 Nausea with vomiting, unspecified; I10 Essential (primary) hypertension; R19.7 Diarrhea, unspecified; F17.200 Nicotine dependence, unspecified, uncomplicated; R10.9 Unspecified abdominal pain; R16.0 Hepatomegaly, not elsewhere classified
CPT/HCPCS: 36415; 71045; 71046; 74177; 81001; 82140; 83690; 83880; 84484; 85025; 85379; 85610; 85730; 93005; 96361; 96374; 99284; C9113; G0378; J1170; J2405; J3010; J7030; Q0163; Q9967; 82040; 82247; 82310; 82374; 82435; 82565; 82947; 84075; 84132; 84155; 84295; 84450; 84460; 84520; 99283